=== PATIENT | female | born 1960 | race Caucasian/White ===

== ENCOUNTER → 2018-11-20 | Outpatient (CLI) | payer BC ==
--- NOTE | 2018-11-20 17:18 | BD ---
EXAMINATION TYPE: Axial Bone Density DATE OF EXAM: 11/20/2018 COMPARISON: NONE CLINICAL HISTORY: 58-year-old female age-related osteoporosis Height: 4 FT 11 1/4 IN Weight: 141 FRAX RISK QUESTIONS: History of Fracture in Adulthood: YES Secondary Osteoporosis: RISK FACTORS HISTORY OF: Hip Fracture (Right/Left): RT When: 6-8 YRS AGO Surgery to Spine/Hip(right/left)/Wrist (right/left): RT WRIST When: APPROX 6-8 YEARS AGO Family History of Osteoporosis: YES Active: YES Postmenopausal woman: TOTAL HYST AGE 47 If Premenopausal, do you have irregular periods: Take estrogen and/or progesterone medications: TOOK FOR ONE YEAR AFTER HYST MEDICATIONS: Additional History: EXAM MEASUREMENTS: Bone mineral densitometry was performed using the [employer] System. Bone mineral density as measured about the Lumbar spine is: ----- L1-L4(G/cm2): 0.776 T Score Values are as follows: ----- L2: -3.6 ----- L3: -3.2 ----- L4: -3.7 ----- L1-L4: -3.4 Bone mineral density has: DECREASED -6.7 % since study of: 2014 Bone mineral density about the R hip (g/cm2): 0.842 Bone mineral density about the L hip (g/cm2): 0.848 T Score values are as follows: -----R Neck: -1.4 -----L Neck: -1.4 -----R Total: -1.6 -----L Total: -1.7 Bone mineral density has: DECREASED -0.6 % since study of: 2014 IMPRESSION: Osteoporosis (T Score less than -2.5). There is increased fracture risk and therapy is usually indicated based on age. Re-Screen 1-2 years. NOTE: T-SCORE=SD OF THE YOUNG ADULT MEAN.
--- NOTE | 2018-11-21 09:59 | MM ---
Reason for exam: screening (asymptomatic). Last mammogram was performed 2 years and 5 months ago. History: Patient is postmenopausal. Physical Findings: A clinical breast exam by your physician is recommended on an annual basis and results should be correlated with mammographic findings. MG 3D Screening Mammo W/Cad Bilateral CC and MLO view(s) were taken. XCCL view(s) were taken of the left breast. Prior study comparison: June 06, 2016, mammogram, performed at [facility]. June 03, 2016, mammogram, performed at [facility]. There are scattered fibroglandular densities. There is no discrete abnormality. No significant changes when compared with prior studies. ASSESSMENT: Negative, BI-RAD 1 RECOMMENDATION: Routine screening mammogram of both breasts in 1 year.
== END | disposition home or self-care (01) ==
LOC: RADBDWWP 11:57
PROVIDERS: ATTEND Family Medicine
DX: Z12.31 Encounter for screening mammogram for malignant neoplasm of breast (principal); M81.0 Age-related osteoporosis without current pathological fracture
CPT/HCPCS: 77063; 77067; 77080

== ENCOUNTER 2019-02-13 09:42 | Day surgery (SDC) | payer BC ==
[2019-02-11 10:54] VITALS: BMI 27.4
[~2019-02-13 09:42] MED LIST: LACTATED RINGERS 1,000 ML IV SCH; LIDOCAINE 1% 20 ML VIAL (10MG/ML) FOR IV START INTRADERMA PRN
[2019-02-13 10:46] VITALS: TEMP 98
[2019-02-13] MEDS ORDERED: PROPOFOL 10 MG/ML 20 ML VIAL IV ONE (11:17)
--- NOTE | 2019-02-13 11:31 | P.PCN ---
Date of Procedure: 02/13/19 Procedure(s) Performed: BRIEF HISTORY: Patient is a 59-year-old pleasant white female, scheduled for an elective colonoscopy as a part of screening for colorectal neoplasia. PROCEDURE PERFORMED: Colonoscopy. PREOPERATIVE DIAGNOSIS: Screening for colon cancer. IV sedation per Anesthesia. PROCEDURE: After informed consent was obtained, the patient, was brought into the endoscopy unit. IV sedation was administered by Anesthesia under continuous monitoring. Digital rectal examination was normal. Initially the Olympus CF-160 flexible video colonoscope was then inserted in the rectum, gradually advanced into the cecum without any difficulty. Careful examination was performed as the scope was gradually being withdrawn. Ileocecal valve and the appendiceal orifice were visualized and appeared normal. Prep was excellent. Mucosa of the cecum, ascending colon, transverse colon, descending colon, sigmoid colon, and rectum appeared normal. Scattered sigmoid diverticulosis seen. Retroflexion was performed in the rectum and no lesions were seen. The patient tolerated the procedure well. IMPRESSION: Normal-appearing colon from rectum to cecum . Scattered left-sided diverticulosis. RECOMMENDATIONS: Findings of this examination were discussed with the patient is well as her family. She was advised to have a repeat screening colonoscopy in 10 years..
[2019-02-13 11:58] VITALS: BP 110/65; PULSE 58; RESP 18
== END 2019-02-13 12:05 | disposition home or self-care (01) ==
LOC: ORWHC2ENDO 09:42
PROVIDERS: ATTEND Internal Medicine Gastroenterology
DX: Z12.11 Encounter for screening for malignant neoplasm of colon (principal); K57.30 Diverticulosis of large intestine without perforation or abscess without bleeding; K21.9 Gastro-esophageal reflux disease without esophagitis; Z88.1 Allergy status to other antibiotic agents; Z79.899 Other long term (current) drug therapy

== ENCOUNTER 2019-05-29 05:57 | Inpatient (IN) | payer BC ==
[2019-05-29] MEDS ORDERED: SODIUM CHLORIDE 0.9% 1,000 ML IV STA ×2 (06:10→08:13)
[2019-05-29] MEDS ORDERED: ONDANSETRON 4 MG/2 ML VIAL IVP STA (06:23)
[2019-05-29] MEDS ORDERED: MORPHINE SULFATE 4 MG/ML SYRINGE IV STA (06:23)
--- NOTE | 2019-05-29 06:25 | ED ---
General Adult HPI <Harpreet Ni - Last Filed: 05/29/19 08:27> - General Source: patient, RN notes reviewed, old records reviewed Mode of arrival: ambulatory Limitations: no limitations <Lino Aguirre - Last Filed: 05/29/19 08:33> - General Chief complaint: Abdominal Pain Stated complaint: diverticulitis flare up Time Seen by Provider: 05/29/19 06:10 - History of Present Illness Initial comments: 59-year-old female patient past history of hysterectomy as well as diverticulitis presents to ED with left lower quadrant abdominal pain. Patient reports that she was seen at the [place] urgent [facility] on 05/22. Patient reports that she was placed on Augmentin and Flagyl. Patient reports that she felt better for a few days, however has continued to have increasing pain in her left lower quadrant as well as subjective fevers. Patient reports nausea without emesis. Patient denies any chest pain, shortness breath, denies all other complaints. Systemic: Pt denies fatigue, fever/chills, rash. Pt denies weakness, night sweats, weight loss. Neuro: Pt denies headache, visual disturbances, syncope or pre-syncope. HEENT: Pt denies ocular discharge or irritation, otalgia, rhinorrhea, pharyn gitis or notable lymphadenopathy. Cardiopulmonary: Pt denies chest pain, SOB, heart palpitations, dyspnea on exertion. Abdominal/GI: Pt denies diarrhea. : Pt denies dysuria, burning w/ urination, frequency/urgency. Denies new onset urinary or bowel incontinence. MSK: Pt denies myalgia, loss of strength or function in extremities. Neuro: Pt denies new onset weakness, paresthesias. (Lino Aguirre) - Related Data Home Medications Medication Instructions Recorded Confirmed Raloxifene [Evista] 60 mg PO DAILY 02/11/19 05/29/19 Amoxic-Pot Clav 875-125Mg 1 tab PO BID 05/29/19 05/29/19 [Augmentin 875-125] metroNIDAZOLE [Flagyl] 500 mg PO TID 05/29/19 05/29/19 Allergies Allergy/AdvReac Type Severity Reaction Status Date / Time ciprofloxacin [From Cipro] AdvReac Nausea & Verified 05/29/19 06:57 Vomiting Review of Systems ROS Other: All systems not noted in ROS Statement are negative. <Harpreet Ni - Last Filed: 05/29/19 08:27> ROS Other: All systems not noted in ROS Statement are negative. <Lino Aguirre - Last Filed: 05/29/19 08:33> ROS Statement: Those systems with pertinent positive or pertinent negative responses have been documented in the HPI. Past Medical History Past Medical History: GERD/Reflux Additional Past Medical History / Comment(s): HX DIVERTICULITIS. OSTEOPOROSIS. History of Any Multi-Drug Resistant Organisms: None Reported Past Surgical History: Hysterectomy, Orthopedic Surgery Additional Past Surgical History / Comment(s): COLONOSCOPY. 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 ORIF RT WRIST. Past Anesthesia/Blood Transfusion Reactions: No Reported Reaction Past Psychological History: No Psychological Hx Reported Smoking Status: Never smoker - Past Family History Father Family Medical History: Cancer Additional Family Medical History / Comment(s): LYMPHOMA Brother(s) Additional Family Medical History / Comment(s): THORACIC AORTIC ANEURYSM <Lino Aguirre - Last Filed: 05/29/19 08:33> General Exam Limitations: no limitations <Lino Aguirre - Last Filed: 05/29/19 08:33> - General Exam Comments Initial Comments: Constitutional: NAD, AOX3, Pt has pleasant affect. HEENT: NC/AT, trachea midline, neck supple, no lymphadenopathy. Posterior pharynx non erythematous, without exudates. External ears appear normal, without discharge. Mucous membranes moist. Eyes PERRLA, EOM intact. There is no scleral icterus. No pallor noted. Cardiopulmonary: RRR, no murmurs, rubs or gallops, no JVD noted. Lungs CTAB in anterior and posterior forde. No peripheral edema. Abdominal exam: Abdomen soft and non-distended. Abdomen mildly tender to palpat ion and left lower quadrant, periumbilical region. No guarding or rigidity.. Bowel sounds active in LLQ. No hepatosplenomegaly. No ecchymosis Neuro: CN II-XII grossly intact. No nuchal rigidity. No raccon eyes, no sanchez sign, no hemotympanum. No cervical spinal tenderness. MSK: No posterior calf tenderness bilaterally, homans sign negative bilaterally. Posterior tibialis and radial pulse +2 bilaterally. Sensation intact in upper and lower extremities. Full active ROM in upper and lower extremities, 5/5 stregnth. (Lino Aguirre) Course Vital Signs 05/29/19 05:59 Temperature 98.6 F Pulse Rate 105 H Respiratory 18 Rate Blood Pressure 115/83 O2 Sat by Pulse 100 Oximetry Medical Decision Making - Lab Data Result diagrams: 05/29/19 06:33 05/29/19 06:33 <Harpreet Ni - Last Filed: 05/29/19 08:27> - Lab Data Result diagrams: 05/29/19 06:33 05/29/19 06:33 <Lino Aguirre - Last Filed: 05/29/19 08:33> - Medical Decision Making Patient reexamined and reevaluated by myself, Dr. Ni. I do agree. Findings. This includes diagnostic interpretation and treatment plan. Results and reports reviewed. Abdomen is soft with mild tenderness left lower quadrant. Patient states she has had symptoms for 3-4 days now. Patient did have outpatient antibiotics without improvement of symptoms. Patient feels febrile at home. Case was discussed in detail with Dr. Luna, who will admit covering for Dr. Norton. (Harpreet Ni) 59-year-old female patient past history of hysterectomy as well as diverticulitis presents to ED with left lower quadrant abdominal pain. Patient reports that she was seen at the [place] urgent [facility] clinic on 05/22. Patient reports that she was placed on Augmentin and Flagyl. Patient reports that she felt better for a few days, however has continued to have increasing pain in her left lower quadrant as well as subjective fevers. Patient reports nausea with out emesis. Patient denies any chest pain, shortness breath, denies all other complaints. Patient also displayed mild tachycardia, otherwise stable, likely secondary to pain. Physical exam displayed mild tenderness to palpation.. PeriUmbilical left lower quadrant region. Investigations revealed mild cytosis of 12.1. Otherwise not impressive. Lactic acid 0.9. CT abdomen and pelvis displayed uncomplicated sigmoid diverticulitis. Underlying wincing excluded. Irregular hyperattenuation hepatic masses on liver. Patient is aware of the previous findings. Pt will be admitted for IV abx and surgery consult. Case discussed with Dr. Ni. (Lino Aguirre) - Lab Data Lab Results 05/29/19 05/29/19 05/29/19 Range/Units 06:33 06:33 06:33 WBC 12.1 H (3.8-10.6) k/uL RBC 4.56 (3.80-5.40) m/uL Hgb 13.5 (11.4-16.0) gm/dL Hct 39.6 (34.0-46.0) % MCV 86.7 (80.0-100.0) fL MCH 29.7 (25.0-35.0) pg MCHC 34.2 (31.0-37.0) g/dL RDW 12.4 (11.5-15.5) % Plt Count 384 (150-450) k/uL Neutrophils % 75 % Lymphocytes % 14 % Monocytes % 6 % Eosinophils % 3 % Basophils % 0 % Neutrophils # 9.0 H (1.3-7.7) k/uL Lymphocytes # 1.7 (1.0-4.8) k/uL Monocytes # 0.8 (0-1.0) k/uL Eosinophils # 0.3 (0-0.7) k/uL Basophils # 0.1 (0-0.2) k/uL Sodium 139 (137-145) mmol/L Potassium 4.2 (3.5-5.1) mmol/L Chloride 105 (98-107) mmol/L Carbon Dioxide 23 (22-30) mmol/L Anion Gap 11 mmol/L BUN 13 (7-17) mg/dL Creatinine 0.47 L (0.52-1.04) mg/dL Est GFR (CKD-EPI)AfAm >90 (>60 ml/min/1.73 sqM) Est GFR (CKD-EPI)NonAf >90 (>60 ml/min/1.73 sqM) Glucose 115 H (74-99) mg/dL Plasma Lactic Acid Farhan 0.9 (0.7-2.0) mmol/L Calcium 9.3 (8.4-10.2) mg/dL Total Bilirubin 0.6 (0.2-1.3) mg/dL AST 15 (14-36) U/L ALT 15 (9-52) U/L Alkaline Phosphatase 69 (38-126) U/L Total Protein 7.2 (6.3-8.2) g/dL Albumin 4.0 (3.5-5.0) g/dL Lipase 47 (23-300) U/L Disposition <Harpreet Ni - Last Filed: 05/29/19 08:27> Is patient prescribed a controlled substance at d/c from ED?: No <Lino Aguirre - Last Filed: 05/29/19 08:33> Clinical Impression: Acute diverticulitis Disposition: ADMITTED IP TO THIS HOSP Condition: Serious Referrals: Jennifer Kincaid MD [Primary Care Provider] - 1-2 days
[2019-05-29 06:43] LABS: Basophils # (A) 0.1 k/uL (0-0.2); Basophils % (A) 0 %; Eosinophils # (A) 0.3 k/uL (0-0.7); Eosinophils % (A) 3 %; HCT 39.6 % (34.0-46.0); HGB 13.5 gm/dL (11.4-16.0); Lymphocytes # (A) 1.7 k/uL (1.0-4.8); Lymphocytes % (A) 14 %; MCH 29.7 pg (25.0-35.0); MCHC 34.2 g/dL (31.0-37.0); MCV 86.7 fL (80.0-100.0); Mean Platelet Volume 6.9; Monocytes # (A) 0.8 k/uL (0-1.0); Monocytes % (A) 6 %; Neutrophils % (A) 75 %; Platelet Count 384 k/uL (150-450); RBC 4.56 m/uL (3.80-5.40); RDW 12.4 % (11.5-15.5); WBC 12.1 k/uL (3.8-10.6)
[2019-05-29 06:51] LABS: ALT 15 U/L (9-52); AST 15 U/L (14-36); African American GFR (CKD) >90 (>60 ml/min/1.73 sqM); Alkaline Phosphatase 69 U/L (38-126); Anion Gap 11 mmol/L; Blood Urea Nitrogen 13 mg/dL (7-17); Calcium 9.3 mg/dL (8.4-10.2); Carbon Dioxide 23 mmol/L (22-30); Chloride 105 mmol/L (98-107); Glucose 115 mg/dL (74-99); Potassium 4.2 mmol/L (3.5-5.1); Sodium 139 mmol/L (137-145); Total Bilirubin 0.6 mg/dL (0.2-1.3); Total Protein 7.2 g/dL (6.3-8.2)
--- NOTE | 2019-05-29 07:59 | CT ---
EXAMINATION TYPE: CT abdomen pelvis w con DATE OF EXAM: 05/29/2019 COMPARISON: None HISTORY: History of diverticulitis, abdominal pain CT DLP: 592 mGycm CONTRAST: CT scan of the abdomen and pelvis is performed without Oral Contrast and with IV Contrast, patient in jected with 100 ml mL of Isovue 300. FINDINGS: LUNG BASES-: No visible nodule. No infiltrate. LIVER/GB: No calcified gallstones. Two hypoattenuating hepatic masses with mild peripheral enhancem ent on the delayed imaging however incomplete filling noted. The masses may reflect hemangiomas howev er masses of other etiology are not excluded including metastatic disease. The largest mass is noted within the anterior segment right hepatic lobe near the dome of the liver measuring of 7.2 x 4.6 x 4. 2 cm. Additional mass within the anterior segment of the right hepatic lobe measures 8.1 x 3.0 cm. Bi liary tree is of normal caliber. PANCREAS: No inflammation. No distinct mass. SPLEEN: No splenic enlargement. No lesion seen. ADRENALS: No nodule. No thickening. KIDNEYS/BLADDER: No hydronephrosis. No nephrolithiasis. Left renal cystic lesion noted midpole left kidney measures 1.9 cm. Urinary bladder grossly unremarkable. BOWEL: Normal appendix. There is moderate sigmoid wall thickening with moderate perisigmoid inflammat ory change felt to reflect diverticulitis. Underlying malignancy not excluded. There is no evidence f or abscess or perforation at this time. There is a small bowel ileus noted as well as fluid contents throughout the colon. GENITAL ORGANS: No gross abnormality. LYMPH NODES: No greater than 1cm abdominal or pelvic lymph nodes are appreciated. AORTA: No significant abnormality. OSSEOUS STRUCTURES: No significant abnormality is seen. OTHER: No significant additional abnormality is seen. IMPRESSION: 1. Findings suspicious for uncomplicated sigmoid diverticulitis. Underlying malignancy not excluded a nd clinical correlation advised. 2. Irregular hypoattenuating hepatic masses with slight peripheral enhancement on delayed imaging may reflect atypical hemangiomas. Masses of other etiology including metastatic disease difficult to exc lude. MRI without and with contrast recommended utilizing hemangioma protocol.
[2019-05-29] MEDS ORDERED: PIPERACILLIN-TAZOBACTAM 3.375 GM in SODIUM CHLORIDE 0.9% 100 ML IVPB SCH (08:15)
[2019-05-29] MEDS ORDERED: PIPERACILLIN-TAZOBACTAM 3.375 GM in SODIUM CHLORIDE 0.9% 100 ML IVPB STA (08:16)
[2019-05-29] MEDS ORDERED: metroNIDAZOLE-NS PMX 500 MG in SALINE 1 100ML.BAG IVPB STA (08:16)
[2019-05-29] MEDS ORDERED: NALOXONE 0.4 MG/ML 1 ML VIAL IV PRN ×2 (08:27→10:03)
[2019-05-29] MEDS ORDERED: ONDANSETRON 4 MG/2 ML VIAL IVP PRN (08:27)
[2019-05-29] MEDS ORDERED: MORPHINE SULFATE 4 MG/ML SYRINGE IV PRN (08:27)
[2019-05-29] MEDS ORDERED: metroNIDAZOLE-NS PMX 500 MG in SALINE 1 100ML.BAG IVPB SCH ×2 (08:30→16:00)
[2019-05-29 08:42] LABS: Appearance,Urine Clear (Clear); Bilirubin,Urine Negative (Negative); Blood,Urine Trace (Negative); Color,Urine Light Yellow; Glucose,Urine (UA) Negative (Negative); Ketones,Urine 1+ (Negative); Leukocyte Esterase,Urine Negative (Negative); Nitrite,Urine Negative (Negative); PH, Urine 6.5 (5.0-8.0); Protein,Urine Negative (Negative); RBC,Urine 1 /hpf (0-5); Specific Gravity,Urine 1.031 (1.001-1.035); Squamous Epithelial Cell,Urine 1 /hpf (0-4); Urobilinogen,Urine <2.0 mg/dL (<2.0); WBC,Urine <1 /hpf (0-5)
[2019-05-29] MEDS ORDERED: HYDROmorphone 0.5 MG/0.5 ML SYRINGE IVP PRN (10:03)
--- NOTE | 2019-05-29 10:12 | P.HPIM ---
History of Present Illness H&P Date: 05/29/19 Chief Complaint: Abdominal pain 59-year-old female with history of multiple bouts of diverticulitis, osteoporosis presents to emergency department because of abdominal pain that started last week on . She went to the urgent care last Monday received some antibiotics which she has been taking until now. She came back to the emergency department because she is still feeling nauseous, having loose stools as well as severe abdominal pain in the left lower quadrant. She also has fevers and chills. No chest pain or shortness of breath. She doesn't feel like eating and has not been eating much. In the emergency department she had computed tomography scan of the abdomen and pelvis which showed persistent uncomplicated diverticulitis, she was [facility] treatment since she failed outpatient oral treatment. Review of Systems Complete review of system performed, pertinent positives per HPI, otherwise negative. 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 Past Anesthesia/Blood Transfusion Reactions: No Reported Reaction Smoking Status: Never smoker - Past Family History Father Family Medical History: Cancer Additional Family Medical History / Comment(s): LYMPHOMA Brother(s) Additional Family Medical History / Comment(s): THORACIC AORTIC ANEURYSM Mother Family Medical History: Hypertension Additional Family Medical History / Comment(s): Mother from a staph infection-she went septic at the age of 74yrs. Medications and Allergies Home Medications Medication Instructions Recorded Confirmed Type Raloxifene [Evista] 60 mg PO DAILY 02/11/19 05/29/19 History Amoxic-Pot Clav 875-125Mg 1 tab PO BID 05/29/19 05/29/19 History [Augmentin 875-125] metroNIDAZOLE [Flagyl] 500 mg PO TID 05/29/19 05/29/19 History Allergies Allergy/AdvReac Type Severity Reaction Status Date / Time ciprofloxacin [From Cipro] AdvReac Nausea & Verified 05/29/19 06:57 Vomiting Physical Exam Vitals: Vital Signs Temp Pulse Resp BP Pulse Ox 05/29/19 08:33 100.2 F H 83 18 119/88 98 05/29/19 05:59 98.6 F 105 H 18 115/83 100 Intake and Output 05/28/19 05/29/19 05/29/19 22:59 06:59 14:59 Other: Weight 63.503 kg Constitutional: No acute distress, conversant, pleasant Eyes:Anicteric sclerae, moist conjunctiva, no lid-lag, PERRLA, ENMT: Oropharynx clear, no erythema, exudates Neck: Supple, FROM, no masses, or JVD, No carotid bruits, No thyromegaly Lungs: Clear to auscultation, Clear to percussion, Normal respiratory effort, no accessory muscle use Cardiovascular: Heart regular in rate and rhythm, No murmurs, gallops, or rubs, No peripheral edema Abdominal: Soft, right lower quadrant tenderness, no guarding, rebound or rigidity, Normoactive bowel sounds, No hepatomegaly, No splenomegaly, No palpable mass Skin: Normal temperature, tone, texture, turgor, no induration, No subcutaneous nodules, No rash, lesions, No ulcers Extremities: No digital cyanosis, No clubbing, Pedal pulses intact and symmetrical, Radial pulses intact and symmetrical, No calf tenderness Psychiatric: Alert and oriented to person, place and time, appropriate affect, intact judgement Neuro: Muscles Strength 5/5 in all 4 extremities, Sensation to light touch grossly present throughout, Cranial nerves II-XII grossly intact, no focal sensory deficits Results CBC & Chem 7: 05/29/19 06:33 05/29/19 06:33 Labs: Abnormal Lab Results - Last 24 Hours (Table) 05/29/19 05/29/19 05/29/19 Range/Units 06:33 06:33 08:15 WBC 12.1 H (3.8-10.6) k/uL Neutrophils # 9.0 H (1.3-7.7) k/uL Creatinine 0.47 L (0.52-1.04) mg/dL Glucose 115 H (74-99) mg/dL Urine Ketones 1+ H (Negative) Urine Blood Trace H (Negative) Thrombosis Risk Factor Assmnt - Choose All That Apply Any of the Below Risk Factors Present?: Yes Each Factor Represents 1 point: Age 41-60 years, Obesity (BMI >25) Other Risk Factors: No Other congenital or acquired thrombophilia - If yes, enter type in comment: No Thrombosis Risk Factor Assessment Total Risk Factor Score: 2 Thrombosis Risk Factor Assessment Level: Low Risk Assessment and Plan Plan: Acute recurrent diverticulitis Start Zosyn IV IV fluids Nothing by mouth Pain control with Toradol and Dilaudid when necessary Consult general surgery for possible sigmoidectomy as this is his third or fourth episodes according to patient GERD Osteoporosis Stable Resume meds CODE STATUS: Full DVT prophylaxis: Patient is ambulatory Anticipated discharge: Home, 05/31.
[2019-05-29] MEDS: KETOROLAC 30 MG/ML 1 ML VIAL IVP PRN ×2 (10:16→19:20)
[2019-05-29] MEDS: SODIUM CHLORIDE 0.9% 1,000 ML IV SCH ×2 (10:25→16:34)
--- NOTE | 2019-05-29 15:36 | P.GSCN ---
History of Present Illness Consult date: 05/29/19 Reason for Consult: Diverticulitis Requesting physician: Lino Aguirre History of present illness: CHIEF COMPLAINT: Diverticulitis HISTORY OF PRESENT ILLNESS: 59-year-old female who presents to the emergency room for chief complaint of abdominal pain. Patient reports she has a history of diverticulitis. She began having abdominal pain last Monday. She reports being seen in urgent care clinic on Monday and was given antibiotics. She states she felt better for about one day but then her pain persisted. Denies nausea or vomiting. Reports loose bowel movement today. Reports low- grade fevers at home. Patient underwent colonoscopy in [address] Suarez revealing diverticulosis. Patient reports she has not had an acute exacerbation of diverticulitis in 3 or 4 years. She reports she has not been watching her diet as closely as possible and has been consuming foods that she knows can trigger diverticulitis exacerbations. PAST MEDICAL HISTORY: See list. PAST SURGICAL HISTORY: See list. SOCIAL HISTORY: No illicit drug use. REVIEW OF SYSTEMS: CONSTITUTIONAL: Reports low-grade fever at home. HEENT: Denies blurred vision, vision changes, or eye pain. Denies hemoptysis CARDIOVASCULAR: Denies chest pain or pressure. RESPIRATORY: No shortness of breath. GASTROINTESTINAL: Refer to HPI for pertinent findings HEMATOLOGIC: Denies bleeding disorders. GENITOURINARY: Denies any blood in urine. SKIN: Denies pruitis. Denies rash. PHYSICAL EXAM: VITAL SIGNS: Reviewed. GENERAL: Well-developed in no acute distress. HEENT: No sclera icterus. Extraocular movements grossly intact. Moist buccal mucosa. Head is atraumatic, normocephalic. ABDOMEN: Soft. Nondistended. Tenderness upon palpation to left lower quadrant. Positive bowel sounds. NEUROLOGIC: Alert and oriented. Cranial nerves II through XII grossly intact. LABORATORY DATA: WBC 12.1. Hemoglobin 13.5. IMAGING: CT abdomen and pelvis: Findings suspicious for uncomplicated sigmoid dive rticulitis. ASSESSMENT: 1. Abdominal pain 2. Acute sigmoid diverticulitis, failed outpatient treatment PLAN: 1. Begin clear liquid diet 2. Continue antibiotics 3. Monitor WBC. Repeat in AM 4. No surgical intervention recommended Nurse practitioner note has been reviewed by physician. Signing provider agrees with the documented findings, assessment, and plan of care. 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 Past Anesthesia/Blood Transfusion Reactions: No Reported Reaction Smoking Status: Never smoker - Past Family History Father Family Medical History: Cancer Additional Family Medical History / Comment(s): LYMPHOMA Brother(s) Additional Family Medical History / Comment(s): THORACIC AORTIC ANEURYSM Mother Family Medical History: Hypertension Additional Family Medical History / Comment(s): Mother from a staph infection-she went septic at the age of 74yrs. Medications and Allergies Home Medications Medication Instructions Recorded Confirmed Type Raloxifene [Evista] 60 mg PO DAILY 02/11/19 05/29/19 History Amoxic-Pot Clav 875-125Mg 1 tab PO BID 05/29/19 05/29/19 History [Augmentin 875-125] metroNIDAZOLE [Flagyl] 500 mg PO TID 05/29/19 05/29/19 History Allergies Allergy/AdvReac Type Severity Reaction Status Date / Time ciprofloxacin [From Cipro] AdvReac Nausea & Verified 05/29/19 06:57 Vomiting Surgical - Exam Vital Signs Temp Pulse Resp BP Pulse Ox 98.6 F 105 H 18 115/83 100 05/29/19 05:59 05/29/19 05:59 05/29/19 05:59 05/29/19 05:59 05/29/19 05:59 Results - Labs 05/29/19 06:33 05/29/19 06:33 Abnormal Lab Results - Last 24 Hours (Table) 05/29/19 05/29/19 05/29/19 Range/Units 06:33 06:33 08:15 WBC 12.1 H (3.8-10.6) k/uL Neutrophils # 9.0 H (1.3-7.7) k/uL Creatinine 0.47 L (0.52-1.04) mg/dL Glucose 115 H (74-99) mg/dL Urine Ketones 1+ H (Negative) Urine Blood Trace H (Negative) Diabetes panel 05/29/19 Range/Units 06:33 Sodium 139 (137-145) mmol/L Potassium 4.2 (3.5-5.1) mmol/L Chloride 105 (98-107) mmol/L Carbon Dioxide 23 (22-30) mmol/L BUN 13 (7-17) mg/dL Creatinine 0.47 L (0.52-1.04) mg/dL Glucose 115 H (74-99) mg/dL Calcium 9.3 (8.4-10.2) mg/dL AST 15 (14-36) U/L ALT 15 (9-52) U/L Alkaline Phosphatase 69 (38-126) U/L Total Protein 7.2 (6.3-8.2) g/dL Albumin 4.0 (3.5-5.0) g/dL Calcium panel 05/29/19 Range/Units 06:33 Calcium 9.3 (8.4-10.2) mg/dL Albumin 4.0 (3.5-5.0) g/dL Pituitary panel 05/29/19 Range/Units 06:33 Sodium 139 (137-145) mmol/L Potassium 4.2 (3.5-5.1) mmol/L Chloride 105 (98-107) mmol/L Carbon Dioxide 23 (22-30) mmol/L BUN 13 (7-17) mg/dL Creatinine 0.47 L (0.52-1.04) mg/dL Glucose 115 H (74-99) mg/dL Calcium 9.3 (8.4-10.2) mg/dL Adrenal panel 05/29/19 Range/Units 06:33 Sodium 139 (137-145) mmol/L Potassium 4.2 (3.5-5.1) mmol/L Chloride 105 (98-107) mmol/L Carbon Dioxide 23 (22-30) mmol/L BUN 13 (7-17) mg/dL Creatinine 0.47 L (0.52-1.04) mg/dL Glucose 115 H (74-99) mg/dL Calcium 9.3 (8.4-10.2) mg/dL Total Bilirubin 0.6 (0.2-1.3) mg/dL AST 15 (14-36) U/L ALT 15 (9-52) U/L Alkaline Phosphatase 69 (38-126) U/L Total Protein 7.2 (6.3-8.2) g/dL Albumin 4.0 (3.5-5.0) g/dL
[2019-05-29] MEDS: PIPERACILLIN-TAZOBACTAM 3.375 GM in SODIUM CHLORIDE 0.9% 100 ML IVPB SCH (16:34)
[2019-05-29 22:46] VITALS: RESP 20
[2019-05-30] MEDS: PIPERACILLIN-TAZOBACTAM 3.375 GM in SODIUM CHLORIDE 0.9% 100 ML IVPB SCH ×2 (01:25→07:53)
[2019-05-30] MEDS: SODIUM CHLORIDE 0.9% 1,000 ML IV SCH (04:50)
[2019-05-30 05:10] VITALS: BP 112/71; PULSE 68; TEMP 97.8
[2019-05-30 07:49] LABS: Basophils % (A) 1 %; Eosinophils # (A) 0.3 k/uL (0-0.7); Eosinophils % (A) 4 %; HCT 36.5 % (34.0-46.0); Lymphocytes % (A) 29 %; MCHC 32.9 g/dL (31.0-37.0); MCV 88.2 fL (80.0-100.0); Mean Platelet Volume 6.8; Monocytes # (A) 0.4 k/uL (0-1.0); Monocytes % (A) 6 %; Neutrophils % (A) 58 %; Platelet Count 353 k/uL (150-450); RBC 4.14 m/uL (3.80-5.40); RDW 12.6 % (11.5-15.5)
[2019-05-30 07:57] LABS: ALT 20 U/L (9-52); AST 13 U/L (14-36); African American GFR (CKD) >90 (>60 ml/min/1.73 sqM); Albumin 3.2 g/dL (3.5-5.0); Alkaline Phosphatase 59 U/L (38-126); Anion Gap 7 mmol/L; Blood Urea Nitrogen 9 mg/dL (7-17); Calcium 8.8 mg/dL (8.4-10.2); Carbon Dioxide 24 mmol/L (22-30); Chloride 110 mmol/L (98-107); Glucose 84 mg/dL (74-99); Magnesium 1.9 mg/dL (1.6-2.3); Phosphorus 4.2 mg/dL (2.5-4.5); Sodium 141 mmol/L (137-145); Total Bilirubin 0.3 mg/dL (0.2-1.3); Total Protein 5.9 g/dL (6.3-8.2)
--- NOTE | 2019-05-30 13:45 | P.PN ---
Subjective Progress Note Date: 05/30/19 CHIEF COMPLAINT: Diverticulitis HISTORY OF PRESENT ILLNESS: Patient examined this morning at the bedside. Patient reports her abdominal pain has resolved. She denies nausea or vomiting. She is tolerating diet. WBC within normal limits. PHYSICAL EXAM: VITAL SIGNS: Reviewed. GENERAL: Well-developed in no acute distress. HEENT: No sclera icterus. Extraocular movements grossly intact. Moist buccal mucosa. Head is atraumatic, normocephalic. ABDOMEN: Soft. Nondistended. Nontender. Positive bowel sounds. NEUROLOGIC: Alert and oriented. Cranial nerves II through XII grossly intact. ASSESSMENT: 1. Abdominal pain 2. Acute sigmoid diverticulitis, failed outpatient treatment PLAN: Patient stable for discharge home today from a surgical standpoint Antibiotics sent to patients pharmacy Follow up in [address] Gregory Nurse practitioner note has been reviewed by physician. Signing provider agrees with the documented findings, assessment, and plan of care. Objective - Vital Signs Vital signs: Vital Signs Temp 97.8 F 05/30/19 04:45 Pulse 68 05/30/19 04:45 Resp 20 05/30/19 04:45 BP 112/71 05/30/19 04:45 Pulse Ox 99 05/30/19 04:45 Intake & Output 05/29/19 05/30/19 05/30/19 18:59 06:59 18:59 Intake Total 290 300 Balance 290 300 Intake: Oral 290 300 Other: # Voids 1 2 - Labs CBC & Chem 7: 05/30/19 07:02 05/30/19 07:02 Labs: Abnormal Lab Results - Last 24 Hours (Table) 05/29/19 05/30/19 Range/Units 06:33 07:02 WBC 12.1 H (3.8-10.6) k/uL Neutrophils # 9.0 H (1.3-7.7) k/uL Chloride 110 H (98-107) mmol/L Creatinine 0.50 L (0.52-1.04) mg/dL AST 13 L (14-36) U/L Total Protein 5.9 L (6.3-8.2) g/dL Albumin 3.2 L (3.5-5.0) g/dL
--- NOTE | 2019-05-30 14:06 | P.DS ---
Providers Date of admission: 05/30/19 09:46 Expected date of discharge: 05/30/19 Attending physician: Aniceto Cabrera MD Consults: 05/29/19 08:31 Consult Physician Stat Consulting Provider: Eitan Gregory Consult Reason/Comments: acute diverticulitis, failed outpt Do you want consulting provider notified?: Yes Primary care physician: [facility] Course: 59-year-old female with history of multiple bouts of diverticulitis, osteoporosis presents to emergency department because of abdominal pain that started last week on . She went to the urgent care last Monday received some antibiotics which she has been taking until now. She came back to the emergency department because she is still feeling nauseous, having loose stools as well as severe abdominal pain in the left lower quadrant. She also has fevers and chills. No chest pain or shortness of breath. She doesn't feel like eating and has not been eating much. In the emergency department she had computed tomography scan of the abdomen and pelvis which showed persistent uncomplicated diverticulitis, she was admitted to the hospital since she failed outpatient oral treatment. Patient was started on Zosyn and IV fluids. Patient improved as expected throughout the hospitalization. For pain control she was treated with Toradol and Dilaudid when necessary. Initially she was kept nothing by mouth and diet was then advanced gradually to regular food on the day of discharge. She tolerated that well. Due to recurrent bouts of diverticulitis she was seen by general surgery who did not advise sigmoidectomy at this point. She'll be discharged home in a stable condition. Patient Condition at Discharge: Serious Plan - Discharge Summary Discharge Rx Participant: No New Discharge Prescriptions: New metroNIDAZOLE [Flagyl] 500 mg PO TID #21 tab Sulfamethox-Tmp 800-160Mg [Bactrim DS 800-160 mg] 1 tab PO Q12HR #14 tab Continue Raloxifene [Evista] 60 mg PO DAILY Discontinued metroNIDAZOLE [Flagyl] 500 mg PO TID Amoxic-Pot Clav 875-125Mg [Augmentin 875-125] 1 tab PO BID Discharge Medication List Raloxifene [Evista] 60 mg PO DAILY 02/11/19 [History] Sulfamethox-Tmp 800-160Mg [Bactrim DS 800-160 mg] 1 tab PO Q12HR #14 tab 05/30/19 [Rx] metroNIDAZOLE [Flagyl] 500 mg PO TID #21 tab 05/30/19 [Rx] Follow up Appointment(s)/Referral(s): Jennifer Kincaid MD [Primary Care Provider] - 1-2 days Eitan Gregory MD [STAFF PHYSICIAN] - 1 Week
== END 2019-05-30 14:44 | disposition home or self-care (01) | DRG 392 ==
LOC: EC 05:57 → 4MS4W 08:41 → OBSVTOIN 05-30 09:46
PROVIDERS: ADMIT Family Medicine; ATTEND Family Medicine
DX: K57.32 Diverticulitis of large intestine without perforation or abscess without bleeding (principal); K21.9 Gastro-esophageal reflux disease without esophagitis; M81.0 Age-related osteoporosis without current pathological fracture; Z80.7 Family history of other malignant neoplasms of lymphoid, hematopoietic and related tissues; Z82.49 Family history of ischemic heart disease and other diseases of the circulatory system; Z90.710 Acquired absence of both cervix and uterus; Z88.1 Allergy status to other antibiotic agents; Z79.818 Long term (current) use of other agents affecting estrogen receptors and estrogen levels
CPT/HCPCS: 36415; 74177; 80053; 81001; 83605; 83690; 83735; 84100; 85025; 96361; 96365; 96375; 99285

== ENCOUNTER → 2020-03-31 | Outpatient (CLI) | payer OTHER ==
--- NOTE | 2020-04-01 08:29 | MM ---
Reason for exam: screening (asymptomatic). Last mammogram was performed 1 year and 4 months ago. History: Patient is postmenopausal. Excisional biopsy of the right breast. Took progesterone for 1 year beginning at age 47. Physical Findings: A clinical breast exam by your physician is recommended on an annual basis and results should be correlated with mammographic findings. MG 3D Screening Mammo W/Cad Bilateral CC and MLO view(s) were taken. Prior study comparison: November 20, 2018, bilateral MG 3d screening mammo w/cad. June 06, 2016, mammogram, performed at [facility]. There are scattered fibroglandular densities. There is no discrete abnormality. No significant changes when compared with prior studies. ASSESSMENT: Negative, BI-RAD 1 RECOMMENDATION: Routine screening mammogram of both breasts in 1 year.
== END | disposition home or self-care (01) ==
LOC: RADMAMWWP 09:33
PROVIDERS: ATTEND Family Medicine
DX: Z12.31 Encounter for screening mammogram for malignant neoplasm of breast (principal)
CPT/HCPCS: 77063; 77067

== ENCOUNTER → 2021-04-07 | Outpatient (CLI) | payer OTHER ==
--- NOTE | 2021-04-07 14:37 | BD ---
EXAMINATION TYPE: Axial Bone Density DATE OF EXAM: 04/07/2021 COMPARISON: NONE CLINICAL HISTORY: Osteoporosis Height: 59 Weight: 143.6 FRAX RISK QUESTIONS: Alcohol (3 or more units per day): no Family History (Parent hip fracture): no Glucocorticoids (More than 3mos): no (Ex: prednisone, prednisolone, methylprednisolone, dexamethasone, and hydrocortisone). History of Fracture in Adulthood: yes Secondary Osteoporosis: 1. Type 1 Diabetes: no 2. Hyperthyroidism: no 3. Menopause before 45: no 4. Malnutrition: no 5. Chronic liver disease: no Rheumatoid Arthritis: no Current Tobacco Use: no RISK FACTORS HISTORY OF: History of Wrist Fracture: right When: 6 years ago Surgery to Spine/Hip(right/left)/Wrist (right/left): right wrist Family History of Osteoporosis: yes Active: yes Diet low in dairy products/other sources of calcium: yes Postmenopausal woman: around age 48 Lost more than 2 inches in height since high school: MEDICATIONS: vit D Osteoporosis Medications: reloxafin How Lon year Additional History: EXAM MEASUREMENTS: Bone mineral densitometry was performed using the [employer] System. Bone mineral density as measured about the Lumbar spine is: ----- L1-L4(G/cm2): 0.807 T Score Values are as follows: ----- L2: -3.1 ----- L3: -3.3 ----- L4: -3.1 ----- L1-L4: -3.1 Bone mineral density has: increased 5.5 % since study of: 11.20.2018 Bone mineral density about the R hip (g/cm2): 0.869 Bone mineral density about the L hip (g/cm2): 0.798 T Score values are as follows: -----R Neck: -1.2 -----L Neck: -1.7 -----R Total: -1.4 -----L Total: -1.6 Bone mineral density has: increased 2.9 % since study of: 11.20.2018 IMPRESSION: Osteoporosis (T Score less than -2.5). There is increased fracture risk and therapy is usually indicated based on age. Re-Screen 1-2 years. NOTE: T-SCORE=SD OF THE YOUNG ADULT MEAN.
--- NOTE | 2021-04-14 11:07 | MM ---
Reason for exam: screening (asymptomatic). Last mammogram was performed 1 year ago. History: Patient is postmenopausal. Excisional biopsy of the right breast. Took progesterone for 1 year beginning at age 47. Physical Findings: A clinical breast exam by your physician is recommended on an annual basis and results should be correlated with mammographic findings. MG 3D Screening Mammo W/Cad Bilateral CC and MLO view(s) were taken. XCCL view(s) were taken of the left breast. Prior study comparison: March 31, 2020, bilateral MG 3d screening mammo w/cad. November 20, 2018, bilateral MG 3d screening mammo w/cad. June 06, 2016, mammogram, performed at [facility]. There are scattered fibroglandular densities. No significant changes when compared with prior studies. ASSESSMENT: Benign, BI-RAD 2 RECOMMENDATION: Routine screening mammogram of both breasts in 1 year.
== END | disposition home or self-care (01) ==
LOC: RADMAMWWP 07:06
PROVIDERS: ATTEND Family Medicine
DX: Z12.31 Encounter for screening mammogram for malignant neoplasm of breast (principal); M85.80 Other specified disorders of bone density and structure, unspecified site
CPT/HCPCS: 77063; 77067; 77080

== ENCOUNTER → 2022-09-15 | Outpatient (CLI) | payer OTHER ==
--- NOTE | 2022-09-16 11:16 | MM ---
Reason for Exam: Screening (asymptomatic). Last mammogram was performed 1 year(s) and 6 month(s) ago. Patient History: Menarche at age 17. First Full-Term at age 24. Left ovary removed at age 47. Right ovary removed at age 47. Hysterectomy at age 47. Postmenopausal. Patient has history of breast feeding. Progesterone for 1 year from age 47 until age 48. Excisional Biopsy on the Right side. Risk Values: Veronika 5 year model risk: 1.4%. NCI Lifetime model risk: 6.9%. Prior Study Comparison: 11/20/2018 Bilateral Screening Mammogram, [facility]. 03/31/2020 Bilateral Screening Mammogram, [facility]. 04/07/2021 Bilateral Screening Mammogram, [facility]. Tissue Density: There are scattered fibroglandular densities. Findings: Analyzed By CAD. There is no suspicious group of microcalcifications or new suspicious mass in either breast. No significant change from prior examinations. Overall Assessment: Negative, BI-RAD 1 Management: Screening Mammogram of both breasts in 1 year. A clinical breast exam by your physician is recommended on an annual basis and results should be correlated with mammographic findings. Electronically signed and approved by: Brent Nur D.O.
== END | disposition home or self-care (01) ==
LOC: RADMAMWWP 16:17
PROVIDERS: ATTEND Family Medicine
DX: Z12.31 Encounter for screening mammogram for malignant neoplasm of breast (principal); Z78.0 Asymptomatic menopausal state; Z98.890 Other specified postprocedural states
CPT/HCPCS: 77063; 77067